=== PATIENT | female | born 1990 | race Caucasian/White ===

== ENCOUNTER 2017-06-02 22:44 | Emergency (ER) | payer MEDICAID, OTHER ==
[~2017-06-02] VITALS: Ht 167.6 cm; Wt 68.0 kg
[2017-06-02 23:06] VITALS: BP 128/90
[2017-06-03 00:40] VITALS: BP 131/87
== END 2017-06-03 00:40 | disposition home or self-care (01) ==
LOC: MED 22:44
DX: J06.9 Acute upper respiratory infection, unspecified (principal)
CPT/HCPCS: 99282